=== PATIENT | female | born 1990 | race Caucasian/White ===

== ENCOUNTER 2021-06-15 18:39 | Emergency (ER) | payer OTHER, SELFPAY ==
--- NOTE | 2021-06-15 | ECG_ITS ---
Test Reason : cp Blood Pressure : / mmHG Vent. Rate : 081 BPM Atrial Rate : 081 BPM P-R Int : 156 ms QRS Dur : 076 ms QT Int : 336 ms P-R-T Axes : 047 013 032 degrees QTc Int : 390 ms Normal sinus rhythm with sinus arrhythmia Otherwise normal ECG No previous ECGs available Referred By: Generic ED Physician Electronically Signed By:ROMMEL GOLDMAN MD
--- NOTE | ~2021-06-15 | XR_ITS ---
EXAMINATION: XR CHEST CLINICAL INFORMATION: Chest pain COMPARISON: None TECHNIQUE: 2 views of the chest were obtained. FINDINGS: No acute finding. No infiltrate. The cardiac silhouette is within normal limits. The hilar structures do not appear pathologically enlarged. There is no effusion. XR/XR chest 2V IMPRESSION: No acute finding.
[2021-06-15 18:57] VITALS: BP 114/77; PULSE 94; RESP 18; TEMP 36.9; O2SAT 100; BMI 30.7
[2021-06-15 20:08] VITALS: BP 125/81; PULSE 84; RESP 14; TEMP 36.8; O2SAT 100
--- NOTE | 2021-06-15 20:08 | ED.GENADULT ---
HPI - General Adult General Chief complaint: General Medical Stated complaint: ?strep throat,?uti and chest pain Time Seen by Provider: 06/15/21 20:02 Source: patient Mode of arrival: ambulatory Limitations: no limitations History of Present Illness HPI narrative: 30 y/o female with no medical history presents to the ER with multiple complaints including chest heaviness, dysuria, and sore throat. She reports 2 days ago she started having pain at the end of her urinary stream and feeling like she needs to ?push.? Denies any vaginal discharge, hematuria, possibility of . She has an IUD. She has some mild nausea but no abdominal pain, vomiting, diarrhea. She also reports some chest heaviness that has been intermittent with exertion for the last 1 week She has no shortness of breath. She states the heaviness does not radiate and is mild. It comes and goes. She also reports having a sore throat for the last 1 week as well. She has pain when she swallows. She has been eating and drinking normally. MD complaint: Sore throat, dysuria, chest pain Onset (ago): week(s) (1) Location: mouth, chest and genitals Radiation: non-radiation Severity: moderate Severity scale (1-10): 5 Quality: aching and dull Pain Consistency: intermittent Relieving factors: movement Exacerbating factors: rest Associated symptoms: chest pain and nausea/vomiting Treatments prior to arrival: none Related Data Previous Rx's Medication Instructions Recorded cefuroxime axetil 250 mg tablet 250 mg PO BID #10 tab 06/15/21 Allergies Allergy/AdvReac Type Severity Reaction Status Date / Time No Known Allergies Allergy Verified 06/15/21 19:08 Review of Systems Review of Systems: Constitutional: No Fever, No Chills ENT/Mouth: + sore throat, No Rhinorrhea, No Swallowing Difficulty Cardiovascular: + Chest Pain, No SOB, No Orthopnea, No Edema Respiratory: No Cough, No Sputum, No Wheezing, No dyspnea Gastrointestinal: No Nausea, No Vomiting, No Diarrhea, No abdominal Pain Genitourinary: + Dysuria, + Urinary Frequency, No Hematuria Musculoskeletal: No joint pain, No Myalgias Skin: No Skin Lesions, No rash Neuro: No Weakness, No Numbness, No Dizziness, No Headache Psych: No Anxiety/Panic, No Depression Heme/Lymph: No Bruising, No Lymphadenopathy Endocrine: No Polyuria, No Polydipsia PMFSH Social History Social History Alcohol intake: unknown Patient Tobacco Use Status: Tobacco use Unknown Use of substances other than those prescribed or required for medical reasons: Unknown Advance Directives: No Advance Directives Information Provided: No Patient : No Physical Exam Vital Signs: Vital Signs: Last Vital Signs Temp 98.3 F 06/15/21 20:08 Pulse 84 06/15/21 20:08 Resp 14 06/15/21 20:08 BP 125/81 06/15/21 20:08 Pulse Ox 100 06/15/21 20:08 Body Mass Index 30.7 Appearance: Alert. Oriented X3. No acute distress. Eyes: Pupils equal, round and reactive to light. ENT: Pharynx with moderate generalized erythema, mild tonsillomegaly without exudate, uvula midline. Neck: Normal inspection. Neck supple. No lymphadenopathy. CVS: Normal heart rate and rhythm. Pulses normal. No anterior chest wall tenderness. Respiratory: No respiratory distress. Breath sounds normal. Abdomen: Soft and nontender. +BS x4. Pelvic deferred. Skin: Skin warm and dry. Normal skin color. Normal skin turgor. No rashes. Extremities: No lower extremity edema. Neuro: Oriented X 3. No motor deficit. No sensory deficit. Course Course Course Narrative: 30-year-old healthy female presenting with multiple complaints including dysuria, chest heaviness, sore throat. No fever or chills. Physical exam is benign with normal vital signs on arrival. She is in no distress. She is vaccinated for COVID. Will check chest x-ray, EKG, UA, Upreg. Perc negative. Reevaluation(s) Reevaluation #1: Workup showing patient has an acute UTI. Will give 1st dose of antibiotics here. Strep is negative. Chest x-ray is clear. COVID is negative. EKG is unremarkable. Patient is stable for discharge home with treatment for her UTI. Information given to follow-up with the primary care doctor. Medical Decision Making Lab Data Labs: Lab Results 06/15/21 06/15/21 06/15/21 Range/Units 20:11 20:11 20:11 Urine Color YELLOW Urine Appearance HAZY Urine pH 6.0 (5.0-8.0) Ur Specific [place] 1.025 (1.005-1.025) Urine Protein NEG (NEG-TRACE) MG/DL Urine Glucose (UA) NEG (NEG) MG/DL Urine Ketones NEG (NEG) MG/DL Urine Blood NEG (NEG) Urine Nitrite POS H (NEG) Ur Leukocyte Esterase TRACE H (NEG) Urine RBC 0-2 (0) /HPF Urine WBC 10-14 H (0-4) /HPF Ur Squamous Epith Cells 1+ /LPF Urine Bacteria 3+ /LPF Urine Test NEGATIVE (NEGATIVE) COVID-19 (BERTIN) Negative (Negative) COVID-19 Clin Com See Note S. pyogenes GrpA ISRRAEL (Negative) 06/15/21 Range/Units 20:37 Urine Color Urine Appearance Urine pH (5.0-8.0) Ur Specific [place] (1.005-1.025) Urine Protein (NEG-TRACE) MG/DL Urine Glucose (UA) (NEG) MG/DL Urine Ketones (NEG) MG/DL Urine Blood (NEG) Urine Nitrite (NEG) Ur Leukocyte Esterase (NEG) Urine RBC (0) /HPF Urine WBC (0-4) /HPF Ur Squamous Epith Cells /LPF Urine Bacteria /LPF Urine Test (NEGATIVE) COVID-19 (BERTIN) (Negative) COVID-19 Clin Com S. pyogenes GrpA [place] Negative (Negative) ECG Data Attestation: I personally reviewed and interpreted this ECG as follows: Prior ECG tracings: not available for review Interpretation: Normal sinus rhythm, heart rate 81 beats per minute, normal ID interval 156 MS, normal QTC, no ST segment elevations or depressions. Discharge Plan Discharge Clinical Impression: Acute UTI Patient Disposition: Home, Self-Care Instructions: Urinary Tract Infection in Women (ED) Additional Instructions: Take the prescribed antibiotic starting tomorrow morning for UTI. You were given the 1st dose tonight in the ER. Your chest x-ray & EKG were normal. Your COVID negative Your strep test was negative. Recommend rest and drinking plenty of fluid. If you develop new or worsening symptoms call 911 or come back to the ER for further evaluation. Prescriptions: New cefuroxime axetil 250 mg tablet 250 mg PO BID Qty: 10 RF: 0
[2021-06-15 20:17] LABS: Appearance Urine HAZY; Color Urine YELLOW; Glucose Urine UA NEG (NEG); Leukocyte Esterase Urine TRACE (NEG); Nitrite Urine POS (NEG); Specific Gravity - Urine 1.025 (1.005-1.025); UACC Culture Trigger YES; Urine Blood NEG (NEG); Urine Ketones NEG (NEG); Urine Protein NEG (NEG-TRACE)
[2021-06-15 20:30] LABS: Bacteria Urine 3+ /LPF; Squamous Epithelial Cell Urine 1+ /LPF
[2021-06-15 20:31] LABS: COVID-19 Test Negative (Negative)
[2021-06-15 20:32] LABS: RBC Urine 0-2 /HPF (0)
[2021-06-15 20:52] LABS: IDNOW Serial# 9DD0AD1C; Strep A Nucleic Acid Negative (Negative)
[2021-06-15 21:03] LABS: UPreg QC Valid YES; Urine Pregnancy NEGATIVE (NEGATIVE)
== END 2021-06-15 21:21 | disposition home or self-care (01) ==
PROVIDERS: Physician Assistant; Emergency Provider Emergency Medicine
DX: N39.0 Urinary tract infection, site not specified (principal); R07.9 Chest pain, unspecified; Z97.5 Presence of (intrauterine) contraceptive device; Z20.822 Contact with and (suspected) exposure to COVID-19
CPT/HCPCS: 36415; 71046; 81001; 81025; 87086; 87088; 87186; 87635; 87651; 93005; 99283; 99284